=== PATIENT | female | born 1950 | race Caucasian/White ===

== ENCOUNTER 2018-05-20 06:48 | Emergency (ER) | payer BC ==
[~2018-05-20] VITALS: Ht 165.1 cm; Wt 78.5 kg
[~2018-05-20 06:48] MED LIST: ACET325 PO; ASPI325EC PO; ATOR80 PO; BRILINTA90 MG PO; CARV3.125 PO; DOCU100 PO; NITR.4SL PO; PHENY100ER PO; PRIM250 PO
[2018-05-20] MEDS ORDERED: ASPI81CH PO (07:45)
[2018-05-20] MEDS ORDERED: CLOP75 PO (07:45)
[2018-05-20] MEDS ORDERED: METO25ER PO (07:45)
== END 2018-05-20 09:17 | disposition home or self-care (01) ==
LOC: ER 06:48
DX: Z46.89 Encounter for fitting and adjustment of other specified devices (principal); Z79.899 Other long term (current) drug therapy; Z79.82 Long term (current) use of aspirin
CPT/HCPCS: 29125; 29705; 99282-25

== ENCOUNTER 2020-10-06 13:39 | Day surgery (SDC) | payer BC ==
[~2020-10-06] VITALS: Ht 165.1 cm; Wt 84.9 kg
[~2020-10-06 13:39] MED LIST changes: +ASPI81CH PO; +CLOP75 PO; +METO25ER PO
[2020-10-06] MEDS ORDERED: EZET10 (14:11)
--- NOTE | 2020-10-06 14:59 | NUR ---
10/06/20 [id number] Brandie Pretty PT HAS BOOT ON RIGHT FOOT, ALSO FRACTURED. UNABLE TO PLACE PAS STOCKINGS. AWARE
--- NOTE | 2020-10-06 16:33 | NUR ---
10/06/20 3604 Evy Helm IV CAUGHT ON CHAIR AND PULLED OUT WHEN TRANSFERRING. PT STATES THAT HER PAIN IS 7/10 AND IS AGREEABLE TO TRY ORAL PAIN MEDICATION PER DR ORDERS SHE DOES NOT WISH TO TRY IV START AT THIS TIME.
== END 2020-10-06 17:15 | disposition home or self-care (01) ==
LOC: ORSCSDS 13:39
PROVIDERS: Podiatrist Foot & Ankle Surgery
PROC: 0QSK04Z Reposition Left Fibula with Internal Fixation Device, Open Approach (ICD-10-PCS; principal; 2020-10-06 14:30)
DX: S82.842A Displaced bimalleolar fracture of left lower leg, initial encounter for closed fracture (principal); I25.2 Old myocardial infarction; I25.10 Atherosclerotic heart disease of native coronary artery without angina pectoris; Z79.899 Other long term (current) drug therapy; Z79.82 Long term (current) use of aspirin
CPT/HCPCS: A9270; C1713; J0171; J0690; J1100; J2250; J2405; J2704; J3010; J7120

== ENCOUNTER 2021-11-10 15:46 | Inpatient (IN) | payer MEDICARE, BC ==
[~2021-11-10] VITALS: Ht 165.1 cm; Wt 78.5 kg
[~2021-11-10 15:46] MED LIST changes: +EZET10 PO
[2021-11-10 20:33] LABS: Influenza A, PCR NEGATIVE (NEGATIVE); Influenza B, PCR NEGATIVE (NEGATIVE); Resp Syncytial Virus, PCR NEGATIVE (NEGATIVE); SARS-Cov-2 (COVID-19) PCR, MMC NEGATIVE (NEGATIVE)
[2021-11-10 22:56] LABS: BASOPHILS ABSOLUTE AUTO 0.03 K/mm3 (0.00-0.23); BASOPHILS PERCENT AUTO 0 % (0-2); EOSINOPHILS ABSOLUTE AUTO 0.01 K/mm3 (0.00-0.68); EOSINOPHILS PERCENT AUTO 0 % (0-6); Hematocrit 36.3 % (33.0-51.0); Hemoglobin 11.9 g/dL (11.5-16.0); IMMATURE GRAN ABSOLUTE AUTO 0.04 K/mm3 (0.00-0.10); IMMATURE GRAN PERCENT AUTO 0 % (0-1); LYMPHOCYTES ABSOLUTE AUTO 0.78 K/mm3 (0.84-5.20); LYMPHOCYTES PERCENT AUTO 7 % (21-46); MONOCYTES ABSOLUTE AUTO 0.69 K/mm3 (0.16-1.47); MONOCYTES PERCENT AUTO 6 % (4-13); Mean Corpuscular HGB 31.5 pg (26.0-34.0); Mean Corpuscular HGB Conc 32.8 g/dL (31.5-36.5); Mean Corpuscular Volume 96 fL (80-100); Mean Platelet Volume 9.8 fL (9.1-12.4); NEUTROPHILS ABSOLUTE AUTO 10.14 K/mm3 (1.96-9.15); NEUTROPHILS PERCENT AUTO 87 % (41-73); Platelet Count 230 K/mm3 (150-400); RDW Coefficient Variation 13.6 % (11.7-14.2); RDW Standard Deviation 48.8 fL (35.1-46.3); Red Blood Cell Count 3.78 M/mm3 (3.80-5.20); White Blood Cell Count 11.69 K/mm3 (4.00-11.30)
[2021-11-10 23:15] LABS: Alanine Aminotransfer (ALT/SGP 35 U/L (12-78); Albumin, Blood 3.4 g/dL (3.4-5.0); Albumin/Globulin Ratio 1.2 (0.8-1.8); Alk Phos 118 U/L (50-136); Anion Gap 9 mmol/L (6-16); Aspartate Aminotrans (AST/SGOT 36 U/L (12-37); Bilirubin, Total 0.5 mg/dL (0.1-1.0); Blood Urea Nitrogen 12 mg/dL (8-24); Bun/Creatinine Ratio 18.3 (12.0-20.0); CO2, Blood 23 mmol/L (21-32); Calcium, Blood 8.5 mg/dL (8.5-10.1); Chloride, Blood 109 mmol/L (98-108); Creatinine, Blood 0.66 mg/dL (0.40-1.00); Dilantin (Phenytoin), Total 15.1 ug/mL (10.0-20.0); Globulin, Blood 2.9 g/dL (2.2-4.0); Glomerular Filtration Rate 94 (60-); Glucose, Blood 115 mg/dL (70-99); Potassium, Blood 4.4 mmol/L (3.5-5.5); Sodium, Blood 141 mmol/L (136-145); Total Protein, Blood 6.3 g/dL (6.4-8.2)
--- NOTE | 2021-11-11 04:44 | NUR ---
SHIFT SUMMARY ADMITTED FOR FRACTURED RIGHT HIP FROM FALL. DNR STATUS. PLAN IS FOR DR. LUNA ORTHO CONSULTATION. PT HAS BEEN NPO SINCE MIDIGHT. COVID/FLU SWABS WERE NEGATIVE. SHE IS ON BEDREST AT THIS TIME. BEDPAN IN USE. SHE IS A&O X4. SHE IS ON RA. 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 SHE DOES TAKE PLAVIX.
--- NOTE | 2021-11-11 16:57 | NUR ---
Patient NPO all day, planning for surgery. Surgery scheduled for tomorrow morning, NPO at midnight tonight. Aspirin & PLavix held this am, vitals stable. Patient on bedrest, increased pain when turning in bed. Dilaudid PRN for pain, effective. Patient transferred to surgical unit, handoff report given to RN. Patient left medical floor at 1630.
--- NOTE | 2021-11-11 17:21 | NUR ---
SHIFT SUMMARY PT A&OX4, VSS/RA, DENIES PAIN MED NEED, REPOSITIONS SELF IN BED. WILL REPORT TO ONCOMING NOC RN.
--- NOTE | 2021-11-12 04:48 | NUR ---
INSPECTOR AIDE SUMMARY NO ACUTE CHANGES THIS SHIFT. PT AAOX4 AND PLEASANT. PT TO HAVE L HIP SURGERY LATER TODAY. PAIN HAS BEEN MANAGED WITH PO ROXICODONE AND IV DILAUDID FOR BREAKTHROUGH PAIN. PT HAS USED THE BED OCONNELL WHEN NEEDED TO VOID. VSS, WILL CONTINUE TO MONITOR.
--- NOTE | 2021-11-12 07:28 | NUR ---
History, Chart, Medications and Allergies reviewed before start of procedure.Patient confirms NPO status and agrees with scheduled surgery. Pre-Op teaching done. Pt verbalizes understanding.
--- NOTE | 2021-11-12 14:48 | NUR ---
SHIFT SUMMARY PT A&OX4, VSS/RA, QUINTON PO REG DIET, VOIDING, PAIN MANAGED WITH 5 MG OXY AND TYLENOL, AMB SBA W/FWW & GB, UP TO CHAIR, USING BSC, PHYSICAL THERAPY PETER WILL REPORT TO NEXT RN.
--- NOTE | 2021-11-13 04:59 | NUR ---
RESIDENTIAL CARPET INSTALLER SUMMARY POD 0 L HIP NAILING. PT AAOX4 AND PLEASANT. AMBULATES WITH 1 ASSIST A FWW. PT HESITANT TO AMBULATE FARTHER THAN BED TO BSC AND BACK. MEDICATED FOR BREAKTHROUGH PAIN X1 WITH DILAUDID AFTER PT GOT UP TO BATHROOM. PT HAS RESTED WELL THROUGH THE NIGHT. VSS, WILL CONTINUE TO MONITOR.
[2021-11-13] MEDS ORDERED: Percocet 5-3251 EACH PO (13:26)
--- NOTE | 2021-11-13 13:49 | NUR ---
DISCHARGE NOTE: PATIENT WAS EDUCATED ON DISCHARGE INSTRUCTIONS. SHE VERBALIZED UNDERSTANDING OF INSTRUCTIONS. HARD PERSCRIPTION WAS PLACED IN THE PATIENTS PURSE PER HER REQUEST. IV WAS TAKEN OUT AND WNL. PAIN IS MANAGED WITH PO PAIN MEDICATION. LEFT HIP HAS AQUACEL DRESSING THAT IS C/D/I. PATIENT DENIES NUMBNESS AND TINGLING. SHE IS A SBA WITH FWW AND GAIT BELT. SHE IS TOLERATING PO INTAKE AND IS VOIDING. PATIENT IS DRESSED AND HAS PERSONAL ITEMS GATHERED. SHE IS WAITING FOR HER TO COME AND PICK HER UP AND TAKE HER HOME. ONCE THE IS HERE SHE WILL BE WHEELCHAIRED DOWN TO HIM.
--- NOTE | 2021-11-13 14:06 | NUR ---
PATIENT WILL BE PICKED UP BY SON NOT .
--- NOTE | 2021-11-13 14:58 | NUR ---
PATIENT WAS WHEELCHAIRED DOWN TO HER SON'S CAR TO BE TAKEN HOME.
== END 2021-11-13 14:48 | disposition home or self-care (01) | DRG 482 ==
LOC: ER 15:46 → MEDS 20:33 → SURS 20:33 → MEDS 22:28 → SURS 11-11 16:31
PROVIDERS: Emergency Medicine; Orthopaedic Surgery; ADMIT Internal Medicine
PROC: 0QS736Z Reposition Left Upper Femur with Intramedullary Internal Fixation Device, Percutaneous Approach (ICD-10-PCS; principal; 2021-11-12 07:30)
DX: S72.145A Nondisplaced intertrochanteric fracture of left femur, initial encounter for closed fracture (principal); Z20.822 Contact with and (suspected) exposure to COVID-19; Z66 Do not resuscitate; I25.10 Atherosclerotic heart disease of native coronary artery without angina pectoris; G40.909 Epilepsy, unspecified, not intractable, without status epilepticus; E78.5 Hyperlipidemia, unspecified; I10 Essential (primary) hypertension; G89.29 Other chronic pain; E66.9 Obesity, unspecified; Z86.718 Personal history of other venous thrombosis and embolism; Z68.28 Body mass index [BMI] 28.0-28.9, adult; I25.2 Old myocardial infarction; Z95.5 Presence of coronary angioplasty implant and graft; Z90.49 Acquired absence of other specified parts of digestive tract; Z90.710 Acquired absence of both cervix and uterus; Z90.89 Acquired absence of other organs; Z98.890 Other specified postprocedural states; Z88.8 Allergy status to other drugs, medicaments and biological substances; Z79.02 Long term (current) use of antithrombotics/antiplatelets; Z79.82 Long term (current) use of aspirin; Z79.899 Other long term (current) drug therapy; W18.39XA Other fall on same level, initial encounter; Y93.K1 Activity, walking an animal
CPT/HCPCS: 0241U; 36415; 73502; 80053; 80185; 85025; 93005; 93010; 94760; 94762; 96374; 97110; 97116; 97162; 97530; 99285-25; A9270; C1713; J0690; J1100; J1170; J2405; J2704; J3010; J7030; J7120

== ENCOUNTER 2024-06-04 07:00 | Day surgery (SDC) | payer MEDICARE, BC ==
[~2024-06-04] VITALS: Ht 165.1 cm; Wt 78.9 kg
[2024-06-04] VITALS (15 sets, daily range): BP systolic 99–118; BP diastolic 42–57
[~2024-06-04 07:00] MED LIST changes: +OXAYDO5 M1 PO; +Percocet 5-3251 EACH PO
[2024-06-04] MEDS ORDERED: propofoL 20 ML IV ONE (07:02)
[2024-06-04] MEDS ORDERED: Dexamethasone Sod Phos 10 MG/ML 1ML VIAL ONE (07:02)
[2024-06-04] MEDS ORDERED: Ondansetron HCl 2 MG / ML 2ML Vial ONE (07:02)
[2024-06-04] MEDS ORDERED: Ketorolac Tromethamine 30mg Vial ONE (07:02)
[2024-06-04] MEDS ORDERED: Bupivacaine 0.5% HCl 5 MG/ML 30MLVIAL ONE (07:02)
[2024-06-04] MEDS ORDERED: Chlorhexidine Mouth Care 15 ML UDC MT SCH (07:35)
[2024-06-04] MEDS ORDERED: Acetaminophen 500 MG Tab PO SCH ×2 (07:35→16:00)
[2024-06-04] MEDS ORDERED: Lactated Ringer's 1,000 ML IV SCH ×2 (07:35→08:30)
[2024-06-04] MEDS ORDERED: Ropivacaine 0.5% HCl/Pf 123.125 MG,EPINEPHrine HCL 0.25 MG,Ketorolac Tromethamine 15 MG... INFIL SCH (07:35)
[2024-06-04] MEDS ORDERED: Tranexamic Acid 1,000 MG in NS 100 ML IV SCH (07:35)
[2024-06-04] MEDS ORDERED: CeFAZolin Sodium 2,000 MG in NS 100 ML IV SCH ×2 (07:35→17:00)
[2024-06-04] MEDS ORDERED: OxyCODONE HCL 10 MG TABCR PO SCH (07:35)
[2024-06-04] MEDS ORDERED: Midazolam HCl 1MG / ML 2ML Vial ONE (07:43)
--- NOTE | 2024-06-04 07:47 | NUR ---
Ambulatory in Day Surgery. History, Chart, Medications and Allergies reviewed before start of procedure. Lungs clear T/O to Auscultation. Patient confirms NPO status and agrees with scheduled surgery. Pre-Op teaching done. Pt verbalizes understanding. PT BELONGINGS PLACED UNDERNEATH GURNEY FOR SAFEKEEPING. PT GLASSES TAKEN TO PACU FOR SAFEKEEPING.
[2024-06-04] MEDS ORDERED: Bisacodyl 10 MG Supp PR PRN (08:25)
[2024-06-04] MEDS ORDERED: DiphenhydrAMINE HCL 25 MG Cap PO PRN (08:25)
[2024-06-04] MEDS ORDERED: HYDROmorphone HCl/Pf 1MG SYR IV PRN (08:30)
[2024-06-04] MEDS ORDERED: Magnesium Hydroxide Conc 10 ML UDC PO PRN (08:30)
[2024-06-04] MEDS ORDERED: FLU VACC TS2024-25(6MOS UP)/PF 45 MCG/0.5 ML SYRINGE IM SCH (08:30)
[2024-06-04] MEDS ORDERED: Ondansetron HCl 2 MG / ML 2ML Vial IV PRN (08:35)
[2024-06-04] MEDS ORDERED: OxyCODONE HCL 5 MG TAB PO PRN ×2 (08:35)
[2024-06-04] MEDS ORDERED: Promethazine HCl 25 MG Tab PO PRN (08:35)
[2024-06-04] MEDS ORDERED: Metoclopramide HCl 5MG / ML 2ML Vial IV PRN (08:35)
[2024-06-04] MEDS ORDERED: Docusate Sodium 100 MG Cap PO SCH (09:00)
[2024-06-04] MEDS ORDERED: Clopidogrel Bisulfate 75 MG Tab PO SCH (09:00)
[2024-06-04] MEDS ORDERED: ePHEDrine Sulfate 50 MG/ML 1ML Injection ONE (09:05)
--- NOTE | 2024-06-04 11:40 | NUR ---
ARRIVED TO FLOOR ARRIVED TO RM 217 @1126. POD 0-R TOTAL KNEE. PER PHARMACEUTICAL LABORATORY TECHNICIAN REPORT, PT WAS STRAIGHT CATH'D APPROX 11:12 BECAUSE PT BLADDER SCAN WAS 441ML. UPON ASSESSMENT PT REPORT NOT ABLE TO MOVE BLE. CAP REFILL <3 SEC. PT DENIES ANY PAIN. HOLA MCNEIL, ELLISS & POLAR PACK IN PLACE, DRESSING C/D/I. CALL LIGHT IN REACH.
[2024-06-04] MEDS ORDERED: Ketorolac Tromethamine 15mg Vial IV SCH (12:00)
--- NOTE | 2024-06-04 19:28 | NUR ---
SHIFT SUMMARY AOX4. POD 0-R TKA. AQUACEL DRESSING C/D/I. CAP REFILL <3 SEC. STRONG PULSE. DENIES N/T. WORKED W/THERAPY. HAS VOIDED. TOLERATING PO, DENIES N/V. PAIN MANAGED W/5MG OXYCODONE & SCHEDULED TORADOL. CALL LIGHT IN REACH.
[2024-06-04] MEDS ORDERED: Metoprolol Succinate 25 MG TABCR PO SCH (21:00)
[2024-06-05 00:11] VITALS: BP 97/60
[2024-06-05 03:55] VITALS: BP 103/60
--- NOTE | 2024-06-05 04:27 | NUR ---
SHIFT SUMMARY POD 1 R TKA. NO ACUTE CHANGES OVERNIGHT. VSS. TOLERATING ORALS. AQUACEL C/D/I. PT REPORTS PAIN TOLERABLE, POLAR PACK IN USE, MEDICATED PER EMAR. VOIDING. AMBULATES USING FWW c GB. ANTICIPATED TO WORK c PHYSCIAL THERAPY THEN DISCHARGE HOME LATER TODAY. PT DRESSED, CALL LIGHT IN REACH, WILL REPORT TO DAY RN.
[2024-06-05 06:39] LABS: BASOPHILS ABSOLUTE AUTO 0.06 K/mm3 (0.00-0.23); BASOPHILS PERCENT AUTO 1 % (0-2); EOSINOPHILS PERCENT AUTO 1 % (0-6); Hematocrit 35.8 % (33.0-51.0); Hemoglobin 11.8 g/dL (11.5-16.0); IMMATURE GRAN ABSOLUTE AUTO 0.04 K/mm3 (0.00-0.10); IMMATURE GRAN PERCENT AUTO 0 % (0-1); LYMPHOCYTES ABSOLUTE AUTO 1.71 K/mm3 (0.84-5.20); LYMPHOCYTES PERCENT AUTO 19 % (21-46); MONOCYTES ABSOLUTE AUTO 0.52 K/mm3 (0.16-1.47); MONOCYTES PERCENT AUTO 6 % (4-13); Mean Corpuscular Volume 97 fL (80-100); Mean Platelet Volume 9.9 fL (9.1-12.4); NEUTROPHILS ABSOLUTE AUTO 6.83 K/mm3 (1.96-9.15); NEUTROPHILS PERCENT AUTO 74 % (41-73); Platelet Count 228 K/mm3 (150-400); RDW Coefficient Variation 13.9 % (11.7-14.2); RDW Standard Deviation 49.5 fL (35.1-46.3); Red Blood Cell Count 3.69 M/mm3 (3.80-5.20); White Blood Cell Count 9.26 K/mm3 (4.00-11.30)
[2024-06-05 07:12] VITALS: BP 107/55
[2024-06-05] MEDS ORDERED: OXAYDO5 M3 PO (07:54)
[2024-06-05] MEDS ORDERED: OXAYDO5 M2 PO (07:54)
[2024-06-05] MEDS ORDERED: Atorvastatin 40 MG Tab PO SCH (09:00)
[2024-06-05] MEDS ORDERED: Primidone 250 MG Tab PO SCH (09:00)
[2024-06-05] MEDS ORDERED: Ezetimibe 10 MG Tab PO SCH (09:00)
[2024-06-05 09:01] LABS: Magnesium, Blood 1.9 mg/dL (1.6-2.4)
[2024-06-05 09:08] LABS: Bun/Creatinine Ratio 17.8 (12.0-20.0); Calcium, Blood 8.2 mg/dL (8.5-10.1); Creatinine, Blood 0.79 mg/dL (0.40-1.00); Potassium, Blood 4.3 mmol/L (3.5-5.5)
--- NOTE | 2024-06-05 15:17 | NUR ---
DISCHARGE SUMMARY POD1 R TKA, A/OX4, VSS, TOLERATING PO, PAIN WELL MANAGED, AQUACELL DRESSING C/D/I, PROVIDED HE WITH 2 ADDITIONAL DRESSING FOR CHANGING AT HOME. DISCUSSED DISCHARGE INFORMATION WITH HER INCLUDING HOME CARE, MEDICATIONS, AND FOLLOW UP APPOINTMENTS. IV ACCESS REMOVED DURING DC INSTRUCTIONS. PT ESCORTED OUT VIA WC TO PRIVATE AUTO TO GO HOME.
[2024-06-06] MEDS ORDERED: Primidone 250 MG Tab PO SCH (09:00)
== END 2024-06-05 13:27 | disposition home or self-care (01) ==
LOC: ORSCMMR 07:00 → ORD 08:30 → ORSCMMR 08:30 → ORD 10:15 → SURS 11:10 → ORSCMMR 06-05 13:27 → ORD 07-02 09:30
PROVIDERS: Orthopaedic Surgery
PROC: 0SRC0JA Replacement of Right Knee Joint with Synthetic Substitute, Uncemented, Open Approach (ICD-10-PCS; principal; 2024-06-04 08:30)
PROC: 8E0Y0CZ Robotic Assisted Procedure of Lower Extremity, Open Approach (ICD-10-PCS; principal; 2024-06-04 08:30)
DX: M17.11 Unilateral primary osteoarthritis, right knee (principal); I10 Essential (primary) hypertension; I25.10 Atherosclerotic heart disease of native coronary artery without angina pectoris; G40.909 Epilepsy, unspecified, not intractable, without status epilepticus; I25.2 Old myocardial infarction; Z79.02 Long term (current) use of antithrombotics/antiplatelets; Z79.899 Other long term (current) drug therapy; Z79.82 Long term (current) use of aspirin
CPT/HCPCS: 27447; 0055T; 36415; 73560-RT; 80048; 83735; 85025; 97110; 97116; 97162; A9270; C1713; C1776; J0171; J0690; J0735; J1100; J1885; J2250; J2405; J2704; J2795; J7120

== ENCOUNTER 2024-12-14 05:51 | Emergency (ER) | payer MEDICARE, BC ==
[~2024-12-14] VITALS: Ht 165.1 cm; Wt 81.7 kg
[~2024-12-14 05:51] MED LIST changes: +ASPIR 8181 M1 PO; +OXAYDO5 M2 PO; +OXAYDO5 M3 PO; +PRIM250
[2024-12-14 06:20] LABS: BASOPHILS ABSOLUTE AUTO 0.05 K/mm3 (0.00-0.23); BASOPHILS PERCENT AUTO 1 % (0-2); EOSINOPHILS ABSOLUTE AUTO 0.16 K/mm3 (0.00-0.68); EOSINOPHILS PERCENT AUTO 2 % (0-6); Hematocrit 28.1 % (33.0-51.0); Hemoglobin 9.3 g/dL (11.5-16.0); IMMATURE GRAN ABSOLUTE AUTO 0.03 K/mm3 (0.00-0.10); IMMATURE GRAN PERCENT AUTO 0 % (0-1); LYMPHOCYTES ABSOLUTE AUTO 1.41 K/mm3 (0.84-5.20); LYMPHOCYTES PERCENT AUTO 17 % (21-46); MONOCYTES ABSOLUTE AUTO 0.62 K/mm3 (0.16-1.47); MONOCYTES PERCENT AUTO 8 % (4-13); Mean Corpuscular HGB Conc 33.1 g/dL (31.5-36.5); Mean Corpuscular Volume 98 fL (80-100); NEUTROPHILS ABSOLUTE AUTO 5.92 K/mm3 (1.96-9.15); NEUTROPHILS PERCENT AUTO 72 % (41-73); NRBC ABSOLUTE 0.00 K/mm3 (0.00-0.02); NRBC Auto 0.0 /100 WBC (0.0-0.2); Platelet Count 226 K/mm3 (150-400); RDW Coefficient Variation 13.2 % (11.7-14.2); RDW Standard Deviation 47.1 fL (35.1-46.3)
[2024-12-14 06:44] LABS: Alanine Aminotransfer (ALT/SGP 20.0 U/L (12-78); Albumin, Blood 3.0 g/dL (3.4-5.0); Albumin/Globulin Ratio 0.8 (0.8-1.8); Anion Gap 6.0 mmol/L (3-11); Aspartate Aminotrans (AST/SGOT 19.0 U/L (12-37); Bilirubin, Total 0.4 mg/dL (0.1-1.0); Blood Urea Nitrogen 15.0 mg/dL (8-24); CO2, Blood 28.0 mmol/L (21-32); Calcium, Blood 8.0 mg/dL (8.5-10.1); Chloride, Blood 107.0 mmol/L (98-108); Creatinine, Blood 0.66 mg/dL (0.40-1.00); Globulin, Blood 3.7 g/dL (2.2-4.0); Glucose, Blood 120.0 mg/dL (70-99); Potassium, Blood 4.2 mmol/L (3.5-5.5); Sodium, Blood 137.0 mmol/L (136-145); Total Protein, Blood 6.7 g/dL (6.4-8.2)
[2024-12-14 08:30] VITALS: BP 115/47
== END 2024-12-14 09:17 | disposition home or self-care (01) ==
LOC: ER 05:51
DX: R07.2 Precordial pain (principal); E78.5 Hyperlipidemia, unspecified; Z79.82 Long term (current) use of aspirin; Z79.899 Other long term (current) drug therapy; Z91.048 Other nonmedicinal substance allergy status; Z88.8 Allergy status to other drugs, medicaments and biological substances
CPT/HCPCS: 71045; 80053; 84484; 85025; 93005; 93010; 99285-25